=== PATIENT | male | born 1940 | race Caucasian/White ===

== ENCOUNTER → 2023-11-14 10:30 | Outpatient (BNVA) | payer MEDICARE, BC, SELFPAY | PROVIDERS: Visit Provider Specialist | DX: G62.9 Polyneuropathy, unspecified (principal); G30.9 Alzheimer's disease, unspecified; F02.80 Dementia in other diseases classified elsewhere, unspecified severity, without behavioral disturbance, psychotic disturbance, mood disturbance, and anxiety; G60.9 Hereditary and idiopathic neuropathy, unspecified | CPT/HCPCS: 82607; 82746; 84443; 85651; 86334; 99204 ==

== ENCOUNTER → 2024-05-14 12:46 | Outpatient (BNVA) | payer MEDICARE, BC, SELFPAY | PROVIDERS: Visit Provider Specialist | DX: G62.9 Polyneuropathy, unspecified (principal); G30.9 Alzheimer's disease, unspecified; F02.80 Dementia in other diseases classified elsewhere, unspecified severity, without behavioral disturbance, psychotic disturbance, mood disturbance, and anxiety; G60.9 Hereditary and idiopathic neuropathy, unspecified | CPT/HCPCS: 99213 ==